=== PATIENT | female | born 1985 | race Caucasian/White ===

== ENCOUNTER → 2018-08-19 | Outpatient (CLI) | payer BC ==
[~2018-08-19] VITALS: Ht 177.8 cm; Wt 121.4 kg
[~2018-08-19] MED LIST: MIRENA52 MG IY
[2018-08-19 08:28] VITALS: BP 135/80; PULSE 78
[2018-08-19 09:45] VITALS: BP 138/85; PULSE 78
== END ==
LOC: COL.RAD 08-14 11:45
DX: R59.0 Localized enlarged lymph nodes (principal)